=== PATIENT | female | born 1950 | race Caucasian/White ===

== ENCOUNTER 2016-11-20 09:46 | Day surgery (SDC) | payer BC, MEDICARE ==
[~2016-11-20 09:46] MED LIST: LACTATED RINGERS 1,000 ML IV SCH
[2016-11-20] MEDS ORDERED: IV START KIT ONE (09:50)
[2016-11-20] MEDS ORDERED: LACTATED RINGERS 1,000 ML ONE (09:50)
[2016-11-20] MEDS ORDERED: FENTANYL 5 ML ONE (10:01)
[2016-11-20] MEDS ORDERED: PROPOFOL 20 ML IV ONE (10:01)
[2016-11-20] MEDS ORDERED: LIDOCAINE 1% (PRES FREE) 5 ML VIAL ONE (10:11)
== END 2016-11-20 11:48 | disposition home or self-care (01) ==
LOC: SDC 09:46
PROVIDERS: ATTEND Internal Medicine Gastroenterology
PROC: 0DJD8ZZ Inspection of Lower Intestinal Tract, Via Natural or Artificial Opening Endoscopic (ICD-10-PCS; principal; 2016-11-20)
DX: Z12.11 Encounter for screening for malignant neoplasm of colon (principal); R10.33 Periumbilical pain; R19.7 Diarrhea, unspecified; R12 Heartburn; E03.9 Hypothyroidism, unspecified; F41.9 Anxiety disorder, unspecified; G25.0 Essential tremor; F40.01 Agoraphobia with panic disorder
CPT/HCPCS: 45378; J3010; J7120